=== PATIENT | female | born 1955 ===

== ENCOUNTER 2020-10-23 22:25 | Emergency (ER) | payer OTHER ==
[~2020-10-23] VITALS: Ht 154.9 cm; Wt 72.6 kg
[~2020-10-23 22:25] MED LIST: TARKA 4/2401 BOTTLE
[2020-10-23] MEDS ORDERED: DUI500 PO (23:58)
== END 2020-10-24 00:17 | disposition home or self-care (01) ==
LOC: ER 22:25
DX: S61.421A Laceration with foreign body of right hand, initial encounter (principal); W45.8XXA Other foreign body or object entering through skin, initial encounter; Y93.89 Activity, other specified; Y92.098 Other place in other non-institutional residence as the place of occurrence of the external cause; Y99.8 Other external cause status